=== PATIENT | female | born 1995 | race Caucasian/White ===

== ENCOUNTER 2021-11-04 15:50 | Outpatient (CLI) | payer OTHER ==
[2021-11-04 16:29] LABS: Creatinine,Urine Random 19.4 mg/dL
[2021-11-04 16:30] LABS: Creatinine,Urine Random 19.2 mg/dL
[2021-11-04 16:31] LABS: Appearance,Urine Clear (Clear); Bilirubin,Urine Negative (Negative); Blood,Urine Negative (Negative); Color,Urine Light Yellow; Glucose,Urine (UA) Negative (Negative); Ketones,Urine Negative (Negative); Leukocyte Esterase,Urine Negative (Negative); Nitrite,Urine Negative (Negative); PH, Urine 6.5 (5.0-8.0); Protein,Urine Negative (Negative); Specific Gravity,Urine 1.004 (1.001-1.035); Urobilinogen,Urine <2.0 mg/dL (<2.0)
[2021-11-04 16:45] LABS: Protein/Creatinine Ratio,Urine 0.781
[2021-11-04 16:51] LABS: Basophils % (A) 0 %; Eosinophils # (A) 0.1 k/uL (0-0.7); Eosinophils % (A) 1 %; HCT 38.2 % (34.0-46.0); Lymphocytes % (A) 18 %; MCH 29.9 pg (25.0-35.0); MCHC 33.9 g/dL (31.0-37.0); MCV 88.2 fL (80.0-100.0); Mean Platelet Volume 9.6; Monocytes # (A) 0.5 k/uL (0-1.0); Monocytes % (A) 5 %; Neutrophils # (A) 8.1 k/uL (1.3-7.7); Neutrophils % (A) 75 %; Platelet Count 213 k/uL (150-450); RBC 4.34 m/uL (3.80-5.40); RDW 13.7 % (11.5-15.5); WBC 10.8 k/uL (3.8-10.6)
[2021-11-04 17:00] LABS: ALT 12 U/L (4-34); AST 20 U/L (14-36); African American GFR (CKD) >90 (>60 ml/min/1.73 sqM); Blood Urea Nitrogen 8 mg/dL (7-17); LDH 362 U/L (313-618); Non-African American GFR(CKD) >90 (>60 ml/min/1.73 sqM); Uric Acid 4.4 mg/dL (3.7-7.4)
[2021-11-04 17:41] VITALS: BP 128/86; PULSE 90; RESP 17; TEMP 97.3
== END 2021-11-04 17:25 | disposition home or self-care (01) ==
LOC: FBPOP 15:50
PROVIDERS: ATTEND Obstetrics & Gynecology
DX: O13.3 Gestational [pregnancy-induced] hypertension without significant proteinuria, third trimester (principal); Z3A.37 37 weeks gestation of pregnancy
CPT/HCPCS: 59025; 81003; 82565; 82570; 83615; 84156; 84450; 84460; 84520; 84550; 85025; 99215

== ENCOUNTER 2021-11-12 10:12 | Inpatient (IN) | payer OTHER ==
[2021-11-12 10:50] LABS: Appearance,Urine Clear (Clear); Bilirubin,Urine Negative (Negative); Blood,Urine Negative (Negative); Color,Urine Light Yellow; Glucose,Urine (UA) Negative (Negative); Ketones,Urine Negative (Negative); Leukocyte Esterase,Urine Negative (Negative); Nitrite,Urine Negative (Negative); Protein,Urine Negative (Negative); Specific Gravity,Urine 1.005 (1.001-1.035); Urobilinogen,Urine <2.0 mg/dL (<2.0)
[2021-11-12 10:58] LABS: Creatinine,Urine Random 23.3 mg/dL; Protein/Creatinine Ratio,Urine 0.515
[2021-11-12 11:01] LABS: Basophils % (A) 0 %; Eosinophils # (A) 0.1 k/uL (0-0.7); Eosinophils % (A) 1 %; HCT 38.8 % (34.0-46.0); Lymphocytes # (A) 1.7 k/uL (1.0-4.8); Lymphocytes % (A) 19 %; MCHC 33.6 g/dL (31.0-37.0); MCV 89.4 fL (80.0-100.0); Monocytes # (A) 0.4 k/uL (0-1.0); Monocytes % (A) 4 %; Neutrophils # (A) 6.5 k/uL (1.3-7.7); Neutrophils % (A) 74 %; Platelet Count 217 k/uL (150-450); RBC 4.33 m/uL (3.80-5.40); RDW 14.3 % (11.5-15.5); WBC 8.8 k/uL (3.8-10.6)
[2021-11-12 11:16] LABS: ALT 17 U/L (4-34); AST 24 U/L (14-36); African American GFR (CKD) >90 (>60 ml/min/1.73 sqM); Blood Urea Nitrogen 4 mg/dL (7-17); LDH 364 U/L (313-618); Non-African American GFR(CKD) >90 (>60 ml/min/1.73 sqM); Uric Acid 4.7 mg/dL (3.7-7.4)
[2021-11-12] MEDS ORDERED: DINOPROSTONE 10 MG INSERT.ER VAGINAL ONE (11:50)
--- NOTE | 2021-11-12 11:53 | US ---
EXAMINATION TYPE: US OB limited DATE OF EXAM: 11/12/2021 COMPARISON: NONE CLINICAL HISTORY: JAKE and Position. high bp, G1 EXAM PERFORMED: OB limited GESTATIONAL AGE / DATING Physician Established: (38 weeks/2 days) EDC: 11/24/2021 No growth performed on today?s study per ordering physician SURVEY JAKE: 16.2 cm Normal Ultrasound evidence of premature rupture of membranes? no PRESENTATION: Vertex LIE: Longitudinal HEART RATE: 160 bpm RHYTHM: Normal IMPRESSION: Limited scan was performed. Normal amniotic fluid index. Fetus shows Vertex presentation .
[2021-11-12] MEDS ORDERED: ZOLPIDEM 5 MG TAB PO PRN (12:59)
--- NOTE | 2021-11-12 13:19 | P.HPOB ---
History of Present Illness H&P Date: 11/12/21 Chief Complaint: Elevated blood pressure This is a 25-year-old female 1 para 0 with an estimated date of confinement of 11/24/2021, estimated gestational age of 38-2/7 weeks, who presents to labor and delivery after being seen in the office found to have a slightly elevated blood pressure at 142/78. She was seen last week by my nurse at 37 weeks and found to have a blood pressure elevated at 141/87. She was sent to labor and delivery at that time and lab work was performed. All of her blood pressures at that time were normal however her protein to creatinine ratio was 0.78. She was sent to labor and delivery again today due to another elevated blood pressure in the office and was found to have 1 elevated blood pressure on admission to triage of 142/87. All other blood pressures were normal. Her labs were normal other than her protein to creatinine ratio is now 0.51. Patient was counseled regarding the fact that she is over 37 weeks and has had several isolated elevated blood pressures along with an elevated protein to creatinine ratio. Based on these findings she does have a diagnosis of preeclampsia without severe features. The patient denies any headaches or blurred vision. She does have some swelling in her lower extremities. She has been feeling irregular cramping and contractions. course has been otherwise uncomplicated. labs: Hepatitis B surface antigen-negative RPR-nonreactive Rubella-immune Blood type-B- Antibody screen-negative, is Rh- also so no RhoGAM was given. HIV-nonreactive Hemoglobin-13.6 Random glucose-67 Obstetrical ultrasound-normal anatomy One hour Glucola-83 Obstetrical ultrasound at 35 weeks gave an estimated weight of 5 lbs. 11 oz. (75%) with vertex presentation and JAKE of 21. GBS-negative Obstetrical history: Gynecologic history: No history of sexually transmitted diseases. Social history: She is . 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 Review of Systems Constitutional: Denies chills, Denies fever Eyes: denies blurred vision, denies pain Ears, nose, mouth and throat: Denies headache, Denies sore throat Cardiovascular: Denies chest pain, Denies shortness of breath Respiratory: Denies cough Gastrointestinal: Reports abdominal pain (Irregular contractions) Genitourinary: Reports pelvic pain, Reports Musculoskeletal: Reports low back pain Musculoskeletal: bilateral: ankle swelling Integumentary: Denies pruritus, Denies rash Neurological: Denies numbness, Denies weakness Psychiatric: Reports anxiety, Denies depression Past Medical History Past Medical History: No Reported History History of Any Multi-Drug Resistant Organisms: None Reported Additional Past Surgical History / Comment(s): [place] teeth Past Anesthesia/Blood Transfusion Reactions: No Reported Reaction Past Psychological History: Anxiety Smoking Status: Never smoker Past Alcohol Use History: None Reported Past Drug Use History: None Reported - Past Family History Father Family Medical History: Hypertension Medications and Allergies Home Medications Medication Instructions Recorded Confirmed Type Pnv,Calcium 72/Iron/Folic Acid 1 tab PO DAILY 11/12/21 11/12/21 History [ Plus Tablet] Allergies Allergy/AdvReac Type Severity Reaction Status Date / Time No Known Allergies Allergy Verified 11/12/21 10:29 Exam Osteopathic Statement: *. No significant issues noted on an osteopathic structural exam other than those noted in the History and Physical/Consult. Intake and Output 11/11/21 11/12/21 11/12/21 22:59 06:59 14:59 Other: Weight 90.265 kg Gen.: Well-developed well-nourished female in no acute distress HEENT: Within normal limits Heart: Regular rate and rhythm Lungs: Clear to auscultation bilaterally Abdomen: Cervix: Closed/60%/-3 station heart tones: Reactive, category 1 Contractions: Irregular Extremities: Negative Homans Results Result Diagrams: 11/12/21 10:43 11/12/21 10:43 Abnormal Lab Results - Last 24 Hours (Table) 11/12/21 Range/Units 10:43 BUN 4 L (7-17) mg/dL Creatinine 0.42 L (0.52-1.04) mg/dL Assessment and Plan (1) Pre-eclampsia, mild, third trimester Narrative/Plan: Without severe features Current Visit: Yes Status: Acute Code(s): O14.03 - MILD TO MODERATE PRE- ECLAMPSIA, THIRD TRIMESTER SNOMED Code(s): 96181368 (2) 38 weeks gestation of Current Visit: Yes Status: Acute Code(s): Z3A.38 - 38 WEEKS GESTATION OF SNOMED Code(s): 85732225 Plan: Admission for Cervidil cervical ripening followed by oxytocin induction of labor due to preeclampsia without severe features. Patient and her were counseled on the risks and benefits of induction of labor versus continuing a based on lab findings and blood pressure findings. They were counseled that preeclampsia can progress fairly rapidly and potentially cause harm to herself or her unborn fetus and the recommendation is delivery since she is over 37 weeks. She is agreeable to the plan. She is aware that Dr. Perera will be taking over care starting this evening.
--- NOTE | 2021-11-12 15:30 | P.MSEPDOC ---
Presenting Problems - Arrival Data Date of Arrival on Unit: 11/12/21 Time of Arrival on Unit: 12:00 Mode of Transport: Ambulatory - Complaint OB-Reason for Admission/Chief Complaint: PIH Medical History - Information : 1 Para: 0 Term: 0 : 0 Abortions: Spontaneous or Elective: 0 Number of Living Children: 0 - Gestational Age Gestational Age by JERONIMO (wks/days): 38 Weeks and 2 Days - History Complications: No Care Review of Systems - Review of Systems Constitutional: No problems Breast: No problems ENT: No problems Cardiovascular: No problems Respiratory: No problems Gastrointestinal: No problems Genitourinary: No problems Musculoskeletal: No problems Neurological: No problems Skin: No problems Vital Signs - Temperature Temperature: 97.6 F Temperature Source: Oral - Pulse Right Brachial Pulse Rate: 97 Pulse Assessment Method: Automatic Cuff - Respirations Respiratory Rate: 14 Oxygen Delivery Method: Room Air - Blood Pressure Right Arm Blood Pressure: 142/84 Blood Pressure Mean: 103 Blood Pressure Source: Automatic Cuff Medical Screen Scoring - Cervical Exam Dilation (cm): 0 Effacement (%): 60 Station: -3 Membranes: Intact - Assessment - Baby A Baseline FHR: 150 Heart Rate - NICHD Category: Category I (Normal) NST: Reactive Physician Notification - Physician Notified Physician Notified Date: 11/12/21 Physician Notified Time: 12:00 Physician: Fátima Marcus New Order Received: Yes - Notification Comment Comment: admit for labor Maternal Triage Index - Urgent/Priority 2 Urgent Priority 2: Yes Provider Notified: Fátima Marcus Provider Notified Time: 12:00 Criteria Met for Priority 2: BP 142/84 Disposition - Disposition OB Disposition: Admit Discharge Date: 11/12/21 Discharge Time: 12:00 I agree with the RN Medical Screening Exam: Yes Case reviewed; plan agreed upon as documented in EMR&OBIX.: Yes Diagnosis: MILD TO MODERATE PRE-ECLAMPSIA, THIRD TRIMESTER
[2021-11-13] MEDS ORDERED: TERBUTALINE 1 MG/ML VIAL SQ PRN (01:01)
[2021-11-13] MEDS ORDERED: METHYLERGONOVINE 0.2 MG/ML 1 ML AMP IM PRN (01:01)
[2021-11-13] MEDS ORDERED: OXYTOCIN 10 UNIT/ML 1 ML VIAL IM PRN (01:01)
[2021-11-13] MEDS ORDERED: LIDOCAINE 1% (PF) 10 MG/ML (30 ML SDV) SQ PRN (01:01)
[2021-11-13] MEDS ORDERED: LIDOCAINE 1% (10MG/ML) FOR IV START INTRADERMA PRN (01:01)
[2021-11-13] MEDS ORDERED: CARBOPROST TROMETHAMINE 250 MCG/ML 1 ML AMP IM PRN (01:01)
[2021-11-13] MEDS: LACTATED RINGERS 1,000 ML IV SCH ×3 (03:32→16:46)
[2021-11-13] MEDS: OXYTOCIN 30 UNITS/500 ML NS 30 UNIT in SALINE 1 500ML.BAG IV SCH (03:45)
[2021-11-13 04:08] LABS: Basophils % (A) 0 %; Eosinophils # (A) 0.1 k/uL (0-0.7); Eosinophils % (A) 0 %; HCT 40.6 % (34.0-46.0); HGB 13.8 gm/dL (11.4-16.0); Lymphocytes % (A) 13 %; MCH 30.1 pg (25.0-35.0); MCV 88.6 fL (80.0-100.0); Mean Platelet Volume 9.4; Monocytes # (A) 0.8 k/uL (0-1.0); Monocytes % (A) 5 %; Neutrophils # (A) 12.7 k/uL (1.3-7.7); Neutrophils % (A) 81 %; Platelet Count 231 k/uL (150-450); RBC 4.58 m/uL (3.80-5.40); RDW 13.8 % (11.5-15.5); WBC 15.7 k/uL (3.8-10.6)
[2021-11-13] MEDS: PRENATAL VIT-IRON-FOLIC ACID 1 EACH CAP PO SCH (08:13)
[2021-11-13] MEDS: BUTORPHANOL 1 MG/ML 1 ML VIAL IV PRN ×3 (13:07→21:20)
[2021-11-14] MEDS: LACTATED RINGERS 1,000 ML IV SCH ×2 (00:56→11:18)
[2021-11-14] MEDS: BUTORPHANOL 1 MG/ML 1 ML VIAL IV PRN (01:53)
[2021-11-14] MEDS ORDERED: AMPICILLIN 2,000 MG in SODIUM CHLORIDE 0.9% 100 ML IVPB STA (06:47)
[2021-11-14] MEDS: PRENATAL VIT-IRON-FOLIC ACID 1 EACH CAP PO SCH (10:14)
[2021-11-14] MEDS: OXYTOCIN 30 UNITS/500 ML NS 30 UNIT in SALINE 1 500ML.BAG IV SCH (10:18)
[2021-11-14] MEDS ORDERED: diphenhydrAMINE 50 MG/ML 1 ML VIAL IVP PRN ×2 (11:13)
[2021-11-14] MEDS ORDERED: SIMETHICONE 80 MG CHEWABLE PO PRN (11:13)
[2021-11-14] MEDS ORDERED: diphenhydrAMINE 25 MG CAP PO PRN (11:13)
[2021-11-14] MEDS ORDERED: HYDROCORTISONE 2.5% RECTAL CREAM 30 GM TUBE RECTAL PRN (11:13)
[2021-11-14] MEDS ORDERED: diphenhydrAMINE 50 MG CAP PO PRN (11:13)
[2021-11-14] MEDS ORDERED: ACETAMINOPHEN TAB 325 MG TAB PO PRN (11:13)
[2021-11-14] MEDS ORDERED: LANOLIN CREAM 5 GM TUBE TOPICAL PRN (11:13)
[2021-11-14] MEDS ORDERED: BENZOCAINE/MENTHOL SPRAY 1 GM/SPRAY AEROSOL TOPICAL PRN (11:13)
[2021-11-14] MEDS ORDERED: ZOLPIDEM 5 MG TAB PO PRN (11:13)
[2021-11-14] MEDS ORDERED: OXYTOCIN 30 UNITS/500 ML NS 30 UNIT in SALINE 1 500ML.BAG IV SCH (11:15)
[2021-11-14] MEDS: IBUPROFEN 600 MG TAB PO PRN (11:36)
--- NOTE | 2021-11-14 20:09 | P.PN ---
Progress Note - Text Progress Note Date: 11/12/21 25-year-old at 30 weeks and 1 day who was admitted for induction of labor by Dr. Marcus. This patient has preeclampsia without severe features. I discussed preeclampsia with the patient and her . Patient presented to me a plan. This plan was To the chart. She wants a little intervention as possible however this is an induction of labor from cervical ripening to normal vaginal delivery. I discussed with her the reason which we will try and have a normal vaginal delivery and avoid section. Patient would not like an epidural so she is open to that if she changes her mind. She wants the cord to have delayed cord clamping at delivery. She would prefer not an operative delivery the we did discuss risks and benefits of the vacuum- assisted vaginal delivery. Patient and her have some real expectations for this induction of labor and the plan was to go forward with induction. Dr. Marcus had placed a Cervidil earlier today and patient is feeling some mild cramping at this point.
--- NOTE | 2021-11-14 20:13 | P.PN ---
Progress Note - Text Progress Note Date: 11/13/21 25-year-old at 38 weeks and 3 days had Cervidil overnight 1 her cervix was closed. This morning her cervix is once anywhere dilated, 80% effaced, -3 station. Her water broke spontaneously at 642 in the morning and clear fluid noted. Pitocin augmentation has been started. Patient is dealing with her pain using position changes and Stadol IV. Pitocin will be increased per protocol and baby is on continuous monitoring. heart tones are 130 with moderate variability and reactive at times. When the patient has Stadol the heart tones to have some minimal variability at times. heart tones are category 1 tracing. Patient continues to contract irregularly.
[2021-11-14] MEDS: SENNOSIDES-DOCUSATE SODIUM 1 EACH TAB PO SCH (20:15)
--- NOTE | 2021-11-14 20:21 | P.PROBDLV ---
Vaginal Delivery Note - . Vaginal Delivery Note: 25-year-old presented at 38 weeks and 2 days for Cervidil induction of labor due to eclampsia with no severe features. Cervidil had been placed by Dr. Marcus at noon on 11/12/2021. Cervidil stayed in until around midnight when it was removed and Pitocin augmentation was started around 4 AM. heart tones are 130 with moderate variability and reactive. Pitocin was increased per protocol and patient's water broke around 6:42 AM spontaneously. In the morning her cervix was dilated 1 cm, 80% effaced, and -3 station. She dealt with her pain using IV Stadol and position changes. At 1848 was noted the patient had a fore bag. Her cervix was 4 cm dilated, 80% effaced and -1 station. Used an amnio-hook to rupture the fore bag and clear fluid was again noted. The patient made slow progress throughout the night and her cervix was completely dilated at 3:55 AM on 11/14/2021. As per the patient's plan the nurse was leading the patient push when she felt the urge but that was about 4 times in the first hour of being complete. The patient did not have much of an effort to push for a while. She was making slow progress and baby tolerated well. Around 10:20 AM patient had been pushing for several hours and was suffering from exhaustion. I obtained informed consent again for a vacuum delivery. The patient and her spoke about it and gave consent. I confirmed position of the baby at +2 station and that the bladder was drained. I placed the vacuum 1 time, with 1 contraction and had one pop-off. I did not replace the vacuum. Patient pushed about half an hour more and delivered a viable female infant over intact perineum. Head delivered OA, anterior shoulder delivered gentle downward guidance. The posterior shoulder and rest of body. Nose and mouth bulb suctioned, cord clamped and cut, infant placed on mother's abdomen. Apgars 8, 9, weight 6 lbs. 14 oz. Placenta delivered spontaneously, intact with three- vessel cord at 10:53 AM. Vagina, cervix, and perineum were inspected. Second- degree midline laceration was repaired with 3-0 Vicryl. Estimated blood loss 200 mL. Mother and baby in stable condition.
[2021-11-15 07:52] LABS: Basophils % (A) 0 %; Eosinophils # (A) 0.1 k/uL (0-0.7); Eosinophils % (A) 0 %; HCT 33.8 % (34.0-46.0); HGB 11.5 gm/dL (11.4-16.0); Lymphocytes # (A) 1.9 k/uL (1.0-4.8); Lymphocytes % (A) 14 %; MCH 30.5 pg (25.0-35.0); MCHC 34.2 g/dL (31.0-37.0); MCV 89.3 fL (80.0-100.0); Monocytes # (A) 0.7 k/uL (0-1.0); Monocytes % (A) 5 %; Neutrophils % (A) 80 %; Platelet Count 187 k/uL (150-450); RBC 3.78 m/uL (3.80-5.40); WBC 13.8 k/uL (3.8-10.6)
[2021-11-15] MEDS: SENNOSIDES-DOCUSATE SODIUM 1 EACH TAB PO SCH ×2 (09:26→23:06)
[2021-11-15] MEDS: PRENATAL VIT-IRON-FOLIC ACID 1 EACH CAP PO SCH (09:26)
[2021-11-15] MEDS: IBUPROFEN 600 MG TAB PO PRN (09:37)
--- NOTE | 2021-11-15 12:56 | P.PNOBGVD ---
Subjective - Subjective Principal diagnosis: Status post vaginal delivery day #1 Interval history: Patient is doing okay this morning. She is in the level I nursery with her baby. Lochia has been decreasing. Her pain has been moderate and she has been using ibuprofen for this. Baby is in level I nursery for antibiotic due to prolonged rupture of membranes. She is breast-feeding. Patient reports: Reports appetite normal, Reports voiding normally, Reports pain well controlled, Reports ambulating normally : nursing well, other (In level I nursery) Objective - Latest Vital Signs Latest vital signs: Vital Signs Temp Pulse Pulse Resp BP Pulse Ox 11/15/21 09:20 98.5 F 89 17 126/81 98 11/15/21 04:00 97.6 F 103 H 16 102/68 98 11/15/21 00:00 97.8 F 102 H 14 99/63 98 11/14/21 20:00 97.6 F 102 H 16 125/80 100 11/14/21 16:00 98.3 F 65 16 140/85 96 11/14/21 13:01 117 H 16 132/85 Intake and Output 11/14/21 11/15/21 11/15/21 22:59 06:59 14:59 Other: # Voids 2 1 # Bowel Movements 1 - Exam Extremities: Present: edema (Trace) Abdomen: Present: normal appearance, soft. Absent: distention, tenderness Uterus: Present: normal, firm. Absent: tenderness - Labs Labs: Abnormal Lab Results - Last 24 Hours (Table) 11/15/21 Range/Units 07:34 WBC 13.8 H (3.8-10.6) k/uL RBC 3.78 L (3.80-5.40) m/uL Hct 33.8 L (34.0-46.0) % Neutrophils # 11.0 H (1.3-7.7) k/uL Assessment and Plan Assessment: Status post vaginal delivery day #1 Preeclampsia without severe features-normal blood pressures postdelivery (1) Pre-eclampsia, mild, third trimester Current Visit: Yes Status: Acute Code(s): O14.03 - MILD TO MODERATE PRE- ECLAMPSIA, THIRD TRIMESTER SNOMED Code(s): 94698239 (2) 38 weeks gestation of Current Visit: Yes Status: Acute Code(s): Z3A.38 - 38 WEEKS GESTATION OF SNOMED Code(s): 14984811 Plan: Will continue with care. Anticipate discharge home tomorrow.
[2021-11-16 08:04] VITALS: RESP 16; TEMP 98.2
[2021-11-16] MEDS: SENNOSIDES-DOCUSATE SODIUM 1 EACH TAB PO SCH (08:12)
--- NOTE | 2021-11-16 09:00 | P.DS ---
Providers Date of admission: 11/12/21 11:34 Expected date of discharge: 11/16/21 Attending physician: Fátima Marcus Primary care physician: Stated None - Discharge Diagnosis(es) (1) Pre-eclampsia, mild, third trimester Current Visit: Yes Status: Acute (2) 38 weeks gestation of Current Visit: Yes Status: Acute Hospital Course: This is a 25-year-old female 1 para 0 at 38-4/7 weeks who presented from the office with elevated blood pressures and elevated protein to creatinine ratio. She was induced with Cervidil cervical ripening followed by oxytocin induction of labor and delivered a viable female vaginally on 11/14/2021 with scores of 8 at 1 minute and 9 at 5 minutes and weight of 6 lbs. 14 oz. Please see history and physical and delivery note for details of patient's admission. Her course has been essentially uncomplicated. Her vital signs have been stable. Lochia has been minimal. She is breast- feeding. Her baby is in level I nursery. Her pain has been well-controlled. Abdomen is soft with fundus firm and nontender. Extremities show negative Homans. She does have 1-2+ pitting edema in her lower extremities. Impression is status post vaginal delivery day #2. Plan is to discharge home today. Routine instructions are given. She states she does not need any pain medication. She will follow up in the office in 1-2 weeks for a blood pressure check. She also will follow up in 6 weeks for check. She is advised to continue checking her blood pressures randomly at home or if she has symptoms. Procedures: Cervidil cervical ripening Oxytocin induction of labor Spontaneous vaginal delivery of a viable female on 11/14/2021 Patient Condition at Discharge: Stable Plan - Discharge Summary New Discharge Prescriptions: Continue Pnv,Calcium 72/Iron/Folic Acid [ Plus Tablet] 1 tab PO DAILY Discharge Medication List Pnv,Calcium 72/Iron/Folic Acid [ Plus Tablet] 1 tab PO DAILY 11/12/21 [History] Follow up Appointment(s)/Referral(s): Fátima Marcus DO [Doctor of Osteopathic Medicine] - 6 Weeks (Follow-up in the office in 1-2 weeks for a blood pressure check) Activity/Diet/Wound Care/Special Instructions: Instructions 1. Do not begin any exercise program for 3 weeks. 2. Do not resume sexual relations for 3 weeks or longer if uncomfortable. 3. You may take tub baths or showers at any time. 4. You may use tampons if desired after 3 weeks. 5. Keep the area of episiotomy (stitches) clean and dry. 6. If you are not nursing, wear a good fitting, supportive bra during the day and limit fluid intake for at least 1 week to prevent breast engorgement. 7. Call the office, [phone], within the next week to make appointment for your 6 week checkup if it has not already been made. 8. Report any of the following occurrences to the doctor promptly: a. Heavy, excessive bleeding b. Chills, fever c. Burning or frequency of urination d. Pain or redness and breasts if nursing e. Increasing pain or swelling in episiotomy (stitches). In addition to the above instructions, the following additional should be followed: 1. No heavy lifting or straining (exercising) until after 6 week checkup. 2. Keep abdominal incision clean and dry: You may wear a dressing if more comfortable. 3. Make office appointment for 10 days after going home or as instructed by her doctor. Discharge Disposition: HOME SELF-CARE
[2021-11-16] MEDS: PRENATAL VIT-IRON-FOLIC ACID 1 EACH CAP PO SCH (09:21)
[2021-11-16 17:06] VITALS: BP 130/86; PULSE 84
== END 2021-11-16 18:15 | disposition home or self-care (01) | DRG 807 ==
LOC: FBPOP 10:12 → 4FBP 11:34
PROVIDERS: ADMIT Obstetrics & Gynecology; ATTEND Obstetrics & Gynecology
PROC: 10D07Z6 Extraction of Products of Conception, Vacuum, Via Natural or Artificial Opening (ICD-10-PCS; principal; 2021-11-14)
PROC: 0KQM0ZZ Repair Perineum Muscle, Open Approach (ICD-10-PCS; 2021-11-14)
PROC: 3E0P7VZ Introduction of Hormone into Female Reproductive, Via Natural or Artificial Opening (ICD-10-PCS; 2021-11-14)
PROC: 3E033VJ Introduction of Other Hormone into Peripheral Vein, Percutaneous Approach (ICD-10-PCS; 2021-11-14)
PROC: 4A0HXCZ Measurement of Products of Conception, Cardiac Rate, External Approach (ICD-10-PCS; 2021-11-14)
DX: O14.04 Mild to moderate pre-eclampsia, complicating childbirth (principal); Z37.0 Single live birth; O42.92 Full-term premature rupture of membranes, unspecified as to length of time between rupture and onset of labor; O75.81 Maternal exhaustion complicating labor and delivery; F41.9 Anxiety disorder, unspecified; O70.1 Second degree perineal laceration during delivery; O99.344 Other mental disorders complicating childbirth; Z3A.38 38 weeks gestation of pregnancy
CPT/HCPCS: 59025; 76815; 81003; 82565; 82570; 83615; 84156; 84450; 84460; 84520; 84550; 85025; 86850; 86900; 86901

== ENCOUNTER → 2023-04-11 | Outpatient (CLI) | payer OTHER | END | disposition home or self-care (01) | LOC: LABWHC1 09:18 | PROVIDERS: ATTEND Obstetrics & Gynecology | DX: O99.810 Abnormal glucose complicating pregnancy (principal); Z3A.00 Weeks of gestation of pregnancy not specified ==

== ENCOUNTER 2023-06-02 10:29 | Outpatient (CLI) | payer OTHER ==
[2023-06-02 11:42] VITALS: BP 128/79; PULSE 102; RESP 16; TEMP 97.3
--- NOTE | 2023-06-04 08:48 | P.MSEPDOC ---
Presenting Problems - Arrival Data Date of Arrival on Unit: 06/02/23 Time of Arrival on Unit: 10:30 Mode of Transport: Ambulatory - Complaint OB-Reason for Admission/Chief Complaint: Rule Out SROM Medical History - Information : 2 Para: 1 Number of Living Children: 1 - Gestational Age Gestational Age by JERONIMO (wks/days): 37 Weeks and 4 Days Review of Systems - Review of Systems Constitutional: No problems Breast: No problems ENT: No problems Cardiovascular: No problems Respiratory: No problems Gastrointestinal: No problems Genitourinary: No problems Musculoskeletal: No problems Neurological: No problems Skin: No problems Vital Signs - Temperature Temperature: 97.3 F Temperature Source: Temporal Artery Scan - Pulse Right Sitting Brachial Pulse Rate: 102 Pulse Assessment Method: Automatic Cuff - Respirations Respiratory Rate: 16 Oxygen Delivery Method: Room Air O2 Sat by Pulse Oximetry: 100 - Blood Pressure Right Arm Blood Pressure: 128/79 Blood Pressure Mean: 95 Blood Pressure Source: Automatic Cuff Medical Screen Scoring - Assessment - Baby A Baseline FHR: 150 Heart Rate - NICHD Category: Category I (Normal) NST: Reactive Physician Notification - Physician Notified Physician Notified Date: 06/02/23 Physician Notified Time: 10:55 Physician: Khalida Perera Order Received: Yes Maternal Triage Index - Maternal Triage Index Presenting for scheduled procedure w/no complaint: No - Stat/Priority 1 Stat Priority 1: No - Urgent/Priority 2 Urgent Priority 2: No - Prompt/Priority 3 Prompt Priority 3: No - Non-Urgent/Priority 4 Non-Urgent Priority 4: Yes Criteria Met for Priority 4: leaking fluid Disposition - Disposition OB Disposition: Discharge to home Discharge Date: 06/02/23 Discharge Time: 11:10 I agree with the RN Medical Screening Exam: Yes Case reviewed; plan agreed upon as documented in EMR&OBIX.: Yes Diagnosis: FALSE LABOR AT OR AFTER 37 COMPLETED WEEKS OF GESTATION
== END 2023-06-02 11:10 | disposition home or self-care (01) ==
LOC: FBPOP 10:29
PROVIDERS: ATTEND Obstetrics & Gynecology
DX: O47.1 False labor at or after 37 completed weeks of gestation (principal); Z3A.37 37 weeks gestation of pregnancy
CPT/HCPCS: 59025; 84112; 99213

== ENCOUNTER 2023-07-03 09:54 | Inpatient (IN) | payer OTHER ==
[2023-07-03] MEDS ORDERED: TRANEXAMIC 1,000 MG/100ML-NACL 1,000 MG in EMPTY BAG 1 BAG IV PRN (11:02)
[2023-07-03] MEDS ORDERED: TERBUTALINE 1 MG/ML VIAL SQ PRN (11:02)
[2023-07-03] MEDS ORDERED: miSOPROStoL 200 MCG TAB PO PRN (11:02)
[2023-07-03] MEDS ORDERED: CARBOPROST TROMETHAMINE 250 MCG/ML 1 ML AMP IM PRN (11:02)
[2023-07-03] MEDS ORDERED: METHYLERGONOVINE 0.2 MG/ML 1 ML AMP IM PRN (11:02)
[2023-07-03] MEDS ORDERED: LIDOCAINE 0.5% (PF) 5 MG/ML (50 ML SDV) SQ PRN (11:02)
[2023-07-03] MEDS ORDERED: OXYTOCIN 10 UNIT/ML 1 ML VIAL IM PRN (11:02)
[2023-07-03] MEDS ORDERED: OXYTOCIN 30 UNITS/500 ML NS 30 UNIT in SALINE 1 500ML.BAG IV SCH ×2 (11:15→17:15)
[2023-07-03 11:25] LABS: Basophils % (A) 0 %; Eosinophils # (A) 0.1 k/uL (0-0.7); Eosinophils % (A) 1 %; HCT 38.4 % (34.0-46.0); HGB 12.6 gm/dL (11.4-16.0); Lymphocytes % (A) 23 %; MCH 28.5 pg (25.0-35.0); MCHC 32.7 g/dL (31.0-37.0); MCV 87.2 fL (80.0-100.0); Mean Platelet Volume 10.2; Monocytes # (A) 0.4 k/uL (0-1.0); Monocytes % (A) 5 %; Neutrophils # (A) 6.1 k/uL (1.3-7.7); Neutrophils % (A) 70 %; Platelet Count 204 k/uL (150-450); RBC 4.41 m/uL (3.80-5.40); RDW 15.2 % (11.5-15.5); WBC 8.8 k/uL (3.8-10.6)
[2023-07-03] MEDS: LACTATED RINGERS 1,000 ML IV SCH ×2 (12:51→19:23)
[2023-07-03] MEDS ORDERED: NALBUPHINE 10 MG/ML (10 ML MDV) IV PRN (15:59)
[2023-07-03] MEDS ORDERED: diphenhydrAMINE 50 MG CAP PO PRN (17:10)
[2023-07-03] MEDS ORDERED: SIMETHICONE 80 MG CHEWABLE PO PRN (17:10)
[2023-07-03] MEDS ORDERED: ZOLPIDEM 5 MG TAB PO PRN (17:10)
[2023-07-03] MEDS ORDERED: BENZOCAINE/MENTHOL SPRAY 1 GM/SPRAY AEROSOL TOPICAL PRN (17:10)
[2023-07-03] MEDS ORDERED: LANOLIN CREAM 5 GM TUBE TOPICAL PRN (17:10)
[2023-07-03] MEDS ORDERED: diphenhydrAMINE 25 MG CAP PO PRN (17:10)
[2023-07-03] MEDS ORDERED: ACETAMINOPHEN TAB 325 MG TAB PO PRN (17:10)
[2023-07-03] MEDS ORDERED: diphenhydrAMINE 50 MG/ML 1 ML VIAL IVP PRN ×2 (17:10)
[2023-07-03] MEDS ORDERED: HYDROCORTISONE 2.5% RECTAL CREAM 30 GM TUBE RECTAL PRN (17:10)
[2023-07-03] MEDS ORDERED: IBUPROFEN 600 MG TAB PO PRN (17:10)
--- NOTE | 2023-07-03 17:24 | P.HPOB ---
History of Present Illness H&P Date: 07/03/23 Chief Complaint: tachycardia 27-year-old presents at 42 weeks. She was in my office earlier today and was placed on NST where the heart tones were in the 180s with moderate variability. She was sent over to labor and delivery by my partner Dr. Abrams while I was in a different delivery. When she presented and IV was started with the heart tones remained in the 180s with moderate variability. There are no decelerations. Patient centered fundal at bedside to decide the plan going forward. The patient was 3 cm dilated so was decided that she would undergo induction of labor. Review of Systems All systems: negative Constitutional: Denies chills, Denies fever Eyes: denies blurred vision, denies pain Ears, nose, mouth and throat: Denies headache, Denies sore throat Cardiovascular: Denies chest pain, Denies shortness of breath Respiratory: Denies cough Gastrointestinal: Denies abdominal pain, Denies diarrhea, Denies nausea, Denies vomiting Genitourinary: Denies dysuria, Denies hematuria Musculoskeletal: Denies myalgias Integumentary: Denies pruritus, Denies rash Neurological: Denies numbness, Denies weakness Psychiatric: Denies anxiety, Denies depression Endocrine: Denies fatigue, Denies weight change Past Medical History Past Medical History: No Reported History History of Any Multi-Drug Resistant Organisms: None Reported Additional Past Surgical History / Comment(s): [place] teeth Past Anesthesia/Blood Transfusion Reactions: No Reported Reaction Past Psychological History: Anxiety Smoking Status: Never smoker Past Alcohol Use History: None Reported Past Drug Use History: None Reported - Past Family History Father Family Medical History: Hypertension Medications and Allergies Home Medications Medication Instructions Recorded Confirmed Type Vit No.180/Iron/Folic 1 tab PO DAILY 11/12/21 07/03/23 History [ Plus Vitamin-Mineral] Allergies Allergy/AdvReac Type Severity Reaction Status Date / Time No Known Allergies Allergy Verified 07/03/23 11:02 Exam Osteopathic Statement: *. No significant issues noted on an osteopathic structural exam other than those noted in the History and Physical/Consult. Vital Signs Temp Pulse Resp BP 07/03/23 11:00 96.7 F L 97 14 120/77 Intake and Output 09/11/23 09/11/23 09/11/23 06:59 14:59 22:59 Intake Total 12.033 Balance 12.033 Intake: Intake, IV Titration 12.033 Amount Oxytocin 30 Units/500 ml 12.033 Ns 30 unit In Saline 1 500ml.bag @ Per Protocol IV .Q0M [facility] Rx#:[id number] Other: Weight 86.183 kg Heart: Regular rate and rhythm Lungs: Clear to auscultation bilaterally Abdomen: Soft, nontender Extremities: Negative Homans sign Results Result Diagrams: 07/03/23 10:45 Assessment and Plan (1) tachycardia Current Visit: Yes Status: Acute Code(s): NTI7478 - SNOMED Code(s): 445885310 (2) Post-dates Current Visit: Yes Status: Acute Code(s): O48.0 - POST-TERM SNOMED Code(s): 25517543 (3) Encounter for induction of labor Current Visit: Yes Status: Acute Code(s): Z34.90 - ENCNTR FOR SUPRVSN OF NORMAL , UNSP, UNSP TRIMESTER SNOMED Code(s): 039471799 Plan: 1. Induction of labor with amniotomy and Pitocin 2. Anticipate normal vaginal delivery 3. Continuous monitoring
--- NOTE | 2023-07-03 17:27 | P.PROBDLV ---
Vaginal Delivery Note - . Vaginal Delivery Note: 27-year-old presents at 42 weeks. She was in my office earlier today and was placed on NST where the heart tones were in the 180s with moderate variability. She was sent over to labor and delivery by my partner Dr. Abrams while I was in a different delivery. When she presented and IV was started with the heart tones remained in the 180s with moderate variability. There are no decelerations. Patient centered huddle at bedside to decide the plan going forward. The patient was 3 cm dilated so was decided that she would undergo induction of labor. Amniotomy performed at 10:47 AM and clear fluid noted. Pitocin augmentation was started. Around 1 PM the heart tones did go down to the 150s with moderate variability and reactive. Her cervix was completely dilated at 1637. She pushed, delivered a viable female infant over intact perineum at 1645. Head delivered OA, nuchal cord 1 easily reduced, anterior shoulder delivered gentle downward guidance followed by posterior shoulder and rest of body. Nose and mouth bulb suctioned, cord and cut, placed mother's abdomen. Apgars 8, 9, weight 9 pounds. Placenta delivered spontaneously, intact with three-vessel cord at 1647. Vagina, cervix, perineum inspected. Second-degree midline laceration was repaired with 3-0 Vicryl. Estimated blood loss 150 mL. Mother and baby in stable condition.
[2023-07-03] MEDS: SENNOSIDES-DOCUSATE SODIUM 1 EACH TAB PO SCH (23:33)
[2023-07-04 06:19] LABS: Basophils % (A) 0 %; Eosinophils # (A) 0.1 k/uL (0-0.7); Eosinophils % (A) 0 %; HCT 36.9 % (34.0-46.0); HGB 12.2 gm/dL (11.4-16.0); Lymphocytes # (A) 2.4 k/uL (1.0-4.8); Lymphocytes % (A) 17 %; MCHC 32.9 g/dL (31.0-37.0); MCV 88.1 fL (80.0-100.0); Mean Platelet Volume 9.8; Monocytes # (A) 0.7 k/uL (0-1.0); Monocytes % (A) 5 %; Neutrophils # (A) 10.5 k/uL (1.3-7.7); Neutrophils % (A) 76 %; Platelet Count 191 k/uL (150-450); RBC 4.19 m/uL (3.80-5.40); WBC 13.7 k/uL (3.8-10.6)
--- NOTE | 2023-07-04 08:09 | P.DS ---
Providers Date of admission: 07/03/23 10:30 Expected date of discharge: 07/04/23 Attending physician: Khalida Perera Primary care physician: Stated None - Discharge Diagnosis(es) (1) tachycardia Current Visit: Yes Status: Resolved (2) Post-dates Current Visit: Yes Status: Resolved (3) Encounter for induction of labor Current Visit: Yes Status: Resolved (4) Status post normal vaginal delivery Current Visit: Yes Status: Acute Hospital Course: Patient presented for induction of labor for postdates and tachycardia. She underwent a normal vaginal delivery. course has been uneventful. She denies nausea, vomiting, chest pain, shortness of breath or calf pain. Patient will be discharged home day #1 in stable condition to follow- up with me in 6 weeks. Plan - Discharge Summary New Discharge Prescriptions: No Action Vit No.180/Iron/Folic [ Plus Vitamin-Mineral] 1 tab PO DAILY Discharge Medication List Vit No.180/Iron/Folic [ Plus Vitamin-Mineral] 1 tab PO DAILY 11/12/21 [History] Follow up Appointment(s)/Referral(s): Khalida Perera DO [Doctor of Osteopathic Medicine] - 6 Weeks Discharge Disposition: HOME SELF-CARE
[2023-07-04 09:02] VITALS: RESP 16
[2023-07-04] MEDS: SENNOSIDES-DOCUSATE SODIUM 1 EACH TAB PO SCH (09:05)
[2023-07-04 20:03] VITALS: BP 122/70; PULSE 98; TEMP 98.2
== END 2023-07-04 18:05 | disposition home or self-care (01) | DRG 807 ==
LOC: FBPOP 09:54 → 4FBP 10:30
PROVIDERS: ADMIT Obstetrics & Gynecology; ATTEND Obstetrics & Gynecology
PROC: 10E0XZZ Delivery of Products of Conception, External Approach (ICD-10-PCS; principal; 2023-07-03)
PROC: 4A0HXCZ Measurement of Products of Conception, Cardiac Rate, External Approach (ICD-10-PCS; principal; 2023-07-03)
PROC: 3E033VJ Introduction of Other Hormone into Peripheral Vein, Percutaneous Approach (ICD-10-PCS; principal; 2023-07-03)
PROC: 10907ZC Drainage of Amniotic Fluid, Therapeutic from Products of Conception, Via Natural or Artificial Opening (ICD-10-PCS; principal; 2023-07-03)
DX: O76 Abnormality in fetal heart rate and rhythm complicating labor and delivery (principal); Z37.0 Single live birth; F41.9 Anxiety disorder, unspecified; O48.0 Post-term pregnancy; O69.81X0 Labor and delivery complicated by cord around neck, without compression, not applicable or unspecified; O99.344 Other mental disorders complicating childbirth; Z3A.42 42 weeks gestation of pregnancy; Z82.49 Family history of ischemic heart disease and other diseases of the circulatory system
CPT/HCPCS: 85025; 86850; 86900; 86901

== ENCOUNTER 2025-03-30 00:03 | Outpatient (CLI) | payer OTHER ==
[2025-03-30 01:40] LABS: Appearance,Urine Clear (Clear); Bacteria,Urine Rare /hpf; Bilirubin,Urine Negative (Negative); Blood,Urine Negative (Negative); Color,Urine Colorless; Glucose,Urine (UA) Negative (Negative); Ketones,Urine Trace (Negative); Leukocyte Esterase,Urine Trace (Negative); Mucus,Urine Rare /hpf; Nitrite,Urine Negative (Negative); Protein,Urine Negative (Negative); RBC,Urine <1 /hpf (0-5); Specific Gravity,Urine 1.005 (1.001-1.035); Squamous Epithelial Cell,Urine <1 /hpf (0-4); Urobilinogen,Urine <2.0 mg/dL (<2.0); WBC,Urine 1 /hpf (0-5)
[2025-03-30 02:06] VITALS: BP 133/86; PULSE 99; RESP 16; TEMP 98.1
--- NOTE | 2025-04-25 11:19 | P.MSEPDOC ---
Presenting Problems - Arrival Data Date of Arrival on Unit: 03/30/25 Time of Arrival on Unit: 00:03 Mode of Transport: Ambulatory - Complaint OB-Reason for Admission/Chief Complaint: Possible Onset of Labor, Acute Nausea/Vomiting Comment: Patient presents to triage with complaints of contractions, nausea, and diarrhea. Medical History - Information : 3 Para: 2 Term: 2 : 0 Abortions: Spontaneous or Elective: 0 Number of Living Children: 2 - Gestational Age Gestational Age by JERONIMO (wks/days): 40 Weeks and 0 Days Review of Systems - Review of Systems Constitutional: No problems Breast: No problems ENT: No problems Cardiovascular: No problems Respiratory: No problems Gastrointestinal: No problems Genitourinary: No problems Musculoskeletal: No problems Neurological: No problems Skin: No problems Vital Signs - Temperature Temperature: 98.1 F Temperature Source: Temporal Artery Scan - Pulse Pulse Oximetery Pulse Rate: 99 Pulse Assessment Method: Pulse Oximetry - Respirations Respiratory Rate: 16 Oxygen Delivery Method: Room Air O2 Sat by Pulse Oximetry: 98 - Blood Pressure Right Arm Blood Pressure: 133/86 Blood Pressure Mean: 101 Blood Pressure Source: Automatic Cuff Physician Notification - Physician Notified Physician Notified Date: 03/30/25 Physician Notified Time: 00:30 Physician: Adrien Lovelace Order Received: Yes (Discharge) Maternal Triage Index - Maternal Triage Index Presenting for scheduled procedure w/no complaint: No - Stat/Priority 1 Stat Priority 1: No - Urgent/Priority 2 Urgent Priority 2: No - Prompt/Priority 3 Prompt Priority 3: No - Non-Urgent/Priority 4 Non-Urgent Priority 4: Yes Criteria Met for Priority 4: Patient presents to triage with complaints of contractions, nausea, and diarrhea. Disposition - Disposition OB Disposition: Discharge to home Discharge Date: 03/30/25 Discharge Time: 02:06 I agree with the RN Medical Screening Exam: Yes Physician's MSE Comment: I have neither seen nor examined the patient. Case reviewed; plan agreed upon as documented in EMR&OBIX.: Yes Diagnosis: RELATED CONDITIONS, UNSPECIFIED, THIRD TRIMESTER
== END 2025-03-30 02:10 ==
LOC: FBPOP 00:03
PROVIDERS: ATTEND Obstetrics & Gynecology
DX: O21.9 Vomiting of pregnancy, unspecified (principal); Z3A.40 40 weeks gestation of pregnancy
CPT/HCPCS: 59025; 81001; 99213

== ENCOUNTER 2025-04-05 23:27 | Inpatient (IN) | payer OTHER ==
[2025-04-06 00:06] LABS: Basophils # (A) 0.03 10*3/uL (0.00-0.10); Basophils % (A) 0.3 %; Eosinophils # (A) 0.09 10*3/uL (0.04-0.35); HCT 34.6 % (37.2-46.3); HGB 12.1 g/dL (12.0-15.0); Lymphocytes # (A) 2.49 10*3/uL (0.90-5.00); Lymphocytes % (A) 27.6 %; MCH 30.3 pg (27.0-32.0); MCV 86.7 fL (80.0-97.0); Mean Platelet Volume 11.2 fL (9.5-12.2); Monocytes # (A) 0.88 10*3/uL (0.20-1.00); Monocytes % (A) 9.8 %; Platelet Count 198 10*3/uL (140-440); RBC 3.99 10*6/uL (4.10-5.20); RDW 13.9 % (11.5-14.5); WBC 9.02 10*3/uL (4.50-10.00)
[2025-04-06] MEDS ORDERED: CARBOPROST TROMETHAMINE 250 MCG/ML 1 ML AMP IM PRN (00:47)
[2025-04-06] MEDS ORDERED: OXYTOCIN 10 UNIT/ML 1 ML VIAL IM PRN (00:47)
[2025-04-06] MEDS ORDERED: miSOPROStoL 200 MCG TAB PO PRN (00:47)
[2025-04-06] MEDS ORDERED: miSOPROStoL 200 MCG TAB RECTAL PRN (00:47)
[2025-04-06] MEDS ORDERED: TRANEXAMIC 1,000 MG/100ML-NACL 1,000 MG in EMPTY BAG 1 BAG IV PRN (00:47)
[2025-04-06] MEDS ORDERED: TERBUTALINE 1 MG/ML VIAL SQ PRN (00:47)
[2025-04-06] MEDS ORDERED: METHYLERGONOVINE 0.2 MG/ML 1 ML AMP IM PRN (00:47)
--- NOTE | 2025-04-06 02:22 | US ---
EXAM: US , Limited CLINICAL HISTORY: position TECHNIQUE: Real-time limited ultrasound of the maternal uterus with image documentation. COMPARISON: No relevant prior studies available. FINDINGS: Fetus: Single living intrauterine gestation. Position: Cephalic presentation. Biometrics: heart tones of 156 beats per minute. Cervix: The cervix is not well visualized however appears open. IMPRESSION: 1. Single living intrauterine gestation in the cephalic presentation. 2. The cervix is not well visualized however appears open. Clinical correlation is recommended.
[2025-04-06] MEDS: LACTATED RINGERS 1,000 ML IV SCH (10:34)
[2025-04-06] MEDS: AMPICILLIN 2,000 MG in SODIUM CHLORIDE 0.9% 100 ML IVPB STA (10:51)
--- NOTE | 2025-04-06 11:43 | P.HPOB ---
History of Present Illness H&P Date: 04/06/25 Chief Complaint: IUP at 41-0/7 weeks, spontaneous rupture of membranes This is a 29-year-old 3 para 2-0-0-2 at 41-0/7 weeks that presents to labor and delivery with complaints of spontaneous rupture of membranes. Patient states water broke around 20-15 and was clear in nature. Patient presented to labor and delivery where no presenting part was appreciated ultrasound was performed and a transverse presentation was appreciated. Patient was not marnie at the time and declined any intervention. heart tones were noted to be category 1 upon presentation. Patient has been receiving routine care which has been essentially uncomplicated. On blood work this patient is a blood type of B-, rubella status immune, hepatitis B surface was negative, HIV negative, RPR nonreactive, group beta strep culture negative. Review of Systems Constitutional: Denies chills, Denies fatigue, Denies fever Ears, nose, mouth and throat: Denies headache Cardiovascular: Reports leg edema Respiratory: Denies dyspnea Gastrointestinal: Denies constipation, Denies diarrhea, Denies nausea, Denies vomiting Genitourinary: Reports Past Medical History Past Medical History: No Reported History History of Any Multi-Drug Resistant Organisms: None Reported Additional Past Surgical History / Comment(s): Kramer teeth Past Anesthesia/Blood Transfusion Reactions: No Reported Reaction Past Psychological History: Anxiety Smoking Status: Never smoker Past Alcohol Use History: None Reported Past Drug Use History: None Reported - Past Family History Father Family Medical History: Hypertension Medications and Allergies Home Medications Medication Instructions Recorded Confirmed Type Vit No.180/Iron/Folic 1 tab PO DAILY 11/12/21 04/05/25 History [ Plus Vitamin-Mineral] Allergies Allergy/AdvReac Type Severity Reaction Status Date / Time No Known Allergies Allergy Verified 04/05/25 23:29 Exam Osteopathic Statement: *. No significant issues noted on an osteopathic structural exam other than those noted in the History and Physical/Consult. Vital Signs Temp Pulse Resp BP Pulse Ox 04/06/25 01:48 97.8 F 115 H 16 155/87 99 04/05/25 23:28 97.8 F 115 H 16 155/87 99 Intake and Output 04/05/25 04/06/25 04/06/25 22:59 06:59 14:59 Other: # Voids 2 Weight 86.183 kg Targeted physical exam is performed in general is well-nourished well-developed female in no acute distress, breathing is nonlabored, abdomen is gravid, last cervical exam per RN is 8/100/-1 station category 1 heart tones are appreciated with contractions every 5 minutes. Results Result Diagrams: 04/05/25 23:55 Abnormal Lab Results - Last 24 Hours (Table) 04/05/25 Range/Units 23:55 RBC 3.99 L (4.10-5.20) 10*6/uL Hct 34.6 L (37.2-46.3) % Assessment and Plan (1) Post-dates Current Visit: No Status: Resolved Code(s): O48.0 - POST-TERM SNOMED Code(s): 98866549 Plan: 29-year-old G3, P2 at 41-0/7 weeks presenting with spontaneous rupture of membranes. Patient is admitted to labor and delivery, patient has progressed to 8 cm at this time. Noted to be vertex presentation. Patient declines all intervention Anticipate spontaneous vaginal delivery
[2025-04-06] MEDS: NALBUPHINE 10 MG/ML (10 ML MDV) IV PRN (14:15)
[2025-04-06] MEDS: LIDOCAINE 0.5% (PF) 5 MG/ML (50 ML SDV) SQ PRN (15:11)
[2025-04-06] MEDS: AMPICILLIN 1,000 MG in SODIUM CHLORIDE 0.9% 50 ML IVPB SCH (15:14)
[2025-04-06] MEDS ORDERED: diphenhydrAMINE 50 MG CAP PO PRN (15:26)
[2025-04-06] MEDS ORDERED: diphenhydrAMINE 50 MG/ML 1 ML VIAL IVP PRN ×2 (15:26)
[2025-04-06] MEDS ORDERED: BENZOCAINE/MENTHOL SPRAY 1 GM/SPRAY AEROSOL TOPICAL PRN (15:26)
[2025-04-06] MEDS ORDERED: diphenhydrAMINE 25 MG CAP PO PRN (15:26)
[2025-04-06] MEDS ORDERED: SIMETHICONE 80 MG CHEWABLE PO PRN (15:26)
[2025-04-06] MEDS ORDERED: LANOLIN CREAM 1 GM TUBE TOPICAL PRN (15:26)
[2025-04-06] MEDS ORDERED: HYDROCORTISONE 2.5% RECTAL CREAM 30 GM TUBE RECTAL PRN (15:26)
[2025-04-06] MEDS ORDERED: ZOLPIDEM 5 MG TAB PO PRN (15:26)
--- NOTE | 2025-04-06 15:30 | P.PROBDLV ---
Vaginal Delivery Note - . Vaginal Delivery Note: Date of service 04/06/2025 Findings: Viable male infant delivered at 1500, weight is pending This is a 29-year-old 3 para 2-0-0-2 that presented to labor and delivery at 41-0/7 weeks with complaints of spontaneous rupture of membranes on 04/06 at approximately 2215. Patient noted fluid to be clear in nature. Patient states she has been receiving routine care which has been essentially uncomplicated. Patient was admitted to labor and delivery and contractions were noted to be sporadic, correct contractions have increased and she did become uncomfortable. Patient declined analgesia. Patient did accept antibiotics at 12 hours for prolonged rupture of membranes. Patient progressed to 8 cm and with very minimal change requested Nubain x 1. Patient progressed to complete and with excellent maternal effort patient had a normal spontaneous vaginal delivery of a viable male infant at 1500, weight pending as she is requested 1 to 3 hours of skin to skin. After 2-minute delay the umbilical cord was doubly clamped and cut, placenta was delivered spontaneously intact with a three-vessel cord being noted. Uterus was noted to be firm below the umbilicus. On inspection of the patient's vaginal vault a first-degree vaginal laceration was appreciated at the perineal edge, this was injected with lidocaine and repaired with 3-0 repeat in a running fashion. Hemostasis was noted after closure. All counts were noted be correct x 2. Patient and tolerated delivery well and are resting comfortably
[2025-04-06] MEDS: ACETAMINOPHEN TAB 500 MG TAB PO SCH (18:14)
[2025-04-06] MEDS: IBUPROFEN 800 MG TAB PO SCH (21:16)
[2025-04-06] MEDS: SENNOSIDES-DOCUSATE SODIUM 1 EACH TAB PO SCH (21:16)
[2025-04-07 07:58] VITALS: BP 117/77; PULSE 89; RESP 16; TEMP 97.6
--- NOTE | 2025-04-07 12:22 | P.DS ---
Providers Date of admission: 04/06/25 00:32 Expected date of discharge: 04/07/25 Attending physician: Amara Franco Primary care physician: Stated None - Discharge Diagnosis(es) (1) Post-dates Current Visit: No Status: Resolved (2) (spontaneous vaginal delivery) Current Visit: Yes Status: Acute (3) Obstetrical laceration, first degree Current Visit: Yes Status: Acute Hospital Course: Is a 29-year-old 3 now para 3-0-0-3 that presented to labor and delivery at 41-0/7 weeks with complaints of spontaneous rupture of membranes. For full details on this patient please see the dictated history and physical. Patient noted rupture of membranes on 615 at approximately 2215 clear in nature. Patient progressed through labor eventually progressing to complete dilation. Once completely dilated patient began pushing and had a normal spontaneous vaginal delivery of a viable male at 1500, weight of 8 pounds 0 ounces, Apgars of 9 and 9 at 1 and 5 minutes respectively. Patient did sustai n a first-degree vaginal laceration during delivery this was repaired in usual fashion with 3-0 Rapide after instillation of lidocaine. Patient's course has been uneventful. On this day #1 she is ambulating and voiding without difficulty. She is tolerating regular diet without nausea or vomiting. States her lochia is moderate. She denies concerns. She would like discharge home. Patient Condition at Discharge: Good Plan - Discharge Summary New Discharge Prescriptions: No Action Vit No.180/Iron/Folic [ Plus Vitamin-Mineral] 1 tab PO DAILY Discharge Medication List Vit No.180/Iron/Folic [ Plus Vitamin-Mineral] 1 tab PO DAILY 11/12/21 [History] Follow up Appointment(s)/Referral(s): Amara Franco DO [Doctor of Osteopathic Medicine] - 6 Weeks Patient Instructions/Handouts: Vaginal Delivery (DC), Vaginal Delivery (GEN) Activity/Diet/Wound Care/Special Instructions: No tub baths or intercourse until 6 weeks . Geep-xix-wesytra ibuprofen 600 mg or 3 tablets every 6 hours as needed for pain. Routine check at 6 weeks. Should she have any concerns prior to this appointment she is urged to call the office and be seen prior Discharge Disposition: HOME SELF-CARE
--- NOTE | 2025-04-08 20:52 | P.MSEPDOC ---
Presenting Problems - Arrival Data Date of Arrival on Unit: 04/06/25 Time of Arrival on Unit: 00:32 Mode of Transport: Ambulatory - Complaint OB-Reason for Admission/Chief Complaint: Rule Out SROM Comment: clear fluid at 2215 Medical History - Information : 3 Para: 2 Term: 2 : 0 Abortions: Spontaneous or Elective: 0 Number of Living Children: 2 - Gestational Age Gestational Age by JERONIMO (wks/days): 41 Weeks and 0 Days Review of Systems - Review of Systems Constitutional: No problems Breast: No problems ENT: No problems Cardiovascular: No problems Respiratory: No problems Gastrointestinal: No problems Genitourinary: No problems Musculoskeletal: No problems Neurological: No problems Skin: No problems Vital Signs - Temperature Temperature: 97.6 F Temperature Source: Oral - Pulse Right Brachial Pulse Rate: 89 Pulse Assessment Method: Automatic Cuff - Respirations Respiratory Rate: 16 - Blood Pressure Right Arm Blood Pressure: 117/77 Blood Pressure Mean: 90 Blood Pressure Source: Automatic Cuff Medical Screen Scoring - Cervical Exam Dilation (cm): 3 Effacement (%): 50 Membranes: Ruptured - Uterine Contractions Resting: Soft to palpation - Assessment - Baby A Baseline FHR: 150 Heart Rate - NICHD Category: Category I (Normal) NST: Reactive Physician Notification - Physician Notified Physician Notified Date: 04/06/25 - Notification Comment Comment: [id number]- Dr. Franco called with report on patient that presents to triage for SROM at 2215 clear fluid. Positive amnisure. Cervical exam 3/50 and unable to feel presenting part. Orders received for ultrasound to confirm presenting part. 0031- US tech reports that baby is in head down position with longitudinal lie. Waiting for official report. Dr. Franco updated with this result. Patient to be admitted to unit for labor. May have pain meds or epidural if needed with cervical change. Maternal Triage Index - Stat/Priority 1 Stat Priority 1: No - Urgent/Priority 2 Urgent Priority 2: No - Prompt/Priority 3 Prompt Priority 3: No - Non-Urgent/Priority 4 Non-Urgent Priority 4: Yes Criteria Met for Priority 4: 41 0/7 SROM Disposition - Disposition OB Disposition: Admit Discharge Date: 04/06/25 Discharge Time: 16:15 I agree with the RN Medical Screening Exam: Yes Case reviewed; plan agreed upon as documented in EMR&OBIX.: Yes Diagnosis: RELATED CONDITIONS, UNSPECIFIED, THIRD TRIMESTER
== END 2025-04-07 16:15 | disposition home or self-care (01) | DRG 807 ==
LOC: FBPOP 23:27 → 4FBP 04-06 00:32
PROVIDERS: ADMIT Obstetrics & Gynecology Obstetrics; ATTEND Obstetrics & Gynecology Obstetrics
PROC: 10E0XZZ Delivery of Products of Conception, External Approach (ICD-10-PCS; principal; 2025-04-06)
PROC: 0HQ9XZZ Repair Perineum Skin, External Approach (ICD-10-PCS; principal; 2025-04-06)
DX: O48.0 Post-term pregnancy (principal); Z37.0 Single live birth; O42.90 Premature rupture of membranes, unspecified as to length of time between rupture and onset of labor, unspecified weeks of gestation; O70.0 First degree perineal laceration during delivery
CPT/HCPCS: 59025; 76815; 85025; 86850; 86900; 86901; 99213